=== PATIENT | female | born 1985 | race Caucasian/White ===

== ENCOUNTER 2024-03-07 14:31 | Outpatient (RCR) | payer OTHER, SELFPAY ==
[2024-02-08 13:57] VITALS: BP 136/72
[2024-02-08] MEDS: VENOFER 110 MG IV (14:10)
[2024-02-08 15:15] VITALS: BP 104/59
[2024-02-15 13:15] VITALS: BP 130/69
[2024-02-15] MEDS: VENOFER 110 MG IV (13:23)
[2024-02-15 15:02] VITALS: BP 106/58
[2024-02-22 13:17] VITALS: BP 134/78
[2024-02-22] MEDS: VENOFER 110 MG IV (13:30)
[2024-02-29 13:00] VITALS: BP 135/70
[2024-02-29] MEDS: VENOFER 110 MG IV (13:31)
[2024-02-29 14:36] VITALS: BP 126/70
[2024-03-07] MEDS: VENOFER 110 MG IV (14:52)
[2024-03-07 14:54] VITALS: BP 119/70
[2024-03-07 16:03] VITALS: BP 114/67
== END 2024-03-07 23:59 | disposition home or self-care (01) ==
LOC: OID 14:31
PROVIDERS: ATTENDING PHYSICIAN Nurse Practitioner Family; PRIMARYCARE PHYSICIAN Emergency Medicine
DX: E61.1 Iron deficiency (principal); Z87.19 Personal history of other diseases of the digestive system; N92.0 Excessive and frequent menstruation with regular cycle
CPT/HCPCS: 96365; J1756